=== PATIENT | male | born 1955 | race Two or more races ===

== ENCOUNTER 2017-06-29 13:31 | Emergency (ER) | payer SELFPAY ==
--- NOTE | 2017-06-29 13:40 | ED Physician Chart ---
ED Chief Complaint/HPI - Patient Information Date Seen:: 06/29/17 Time Seen:: 13:39 Chief Complaint:: DIFFICULTY BREATHING X 1 WEEK History of Present Illness:: THIS 62 YEAR OLD MALE PRESENTS WITH 1 WEEK OF DIFFICULTY BREATHING WITH MILD EXERTION. HE HAS HAD SWELLING OF THE ABDOMEN AND IN BOTH LOWER EXTREMITIES FOR THE PAST 2 MONTHS. HE HAS A COUGH WHICH IS NON-PRODUCTIVE AND HE DENIES HEMOPTYSIS. NO RECENT FEVER OR CHILLS. NO ORTHROPNEA OR PND. THE PT HAS ALSO NOTED THAT HE DEVELOPS SUBSTERNAL PRESSURE LIKE DISCOMFORT OVER THE PAST WEEK. NO DIPHORESIS. . Historian:: Patient ED Review of Systems - Review of Systems General/Constitutional: No fever, No chills, No weight loss, No weakness, No diaphoresis, Edema, No loss of appetite Skin: No skin lesions, No bruising Head: No headache, No light-headedness Eyes: No loss of vision, Diplopia, No diplopia ENT: No earache, No sore throat, No tinnitus Neck: No neck pain, No swelling, No thyromegaly, No stiffness, No mass noted Cardio Vascular: Chest pain (with exertion.), Palpitations, No PND, No orthopnea , edema Pulmonary: SOB, Cough, No sputum, No wheezing GI: No nausea, No vomiting, No diarrhea, No constipation, No hematemesis, Other (HAS HAD ABDOMINAL DISTENSION FOR THE PAST 2 MONTHS) G/U: No dysuria, No frequency, No hematuria Musculoskeletal: No bone or joint pain, No muscle pain, Other (CHRONIC LOW BACK PAINS.) Psychiatric: No prior psych history, No depression, Anxiety, No suicidal ideation Hematopoietic: No bruising, No lymphadenopathy Allergic/Immuno: No urticaria, No angioedema Neurological: No syncope, No focal symptoms, No weakness, No paresthesia, No headache, No seizure, No dizziness, No confusion, No vertigo ED Past Medical History - Past Medical History Past Medical History: HTN, Other (no diabetes) Family History: Heart disease (both the patient's father and uncle have coronary stents that started in their 50s.) Social History: Non Smoker, No Alcohol, No Drug Use Family Medical History - Family Member Mother Living Status: Hx Family Diabetes: Yes ED Physical Exam - Physical Examination General/Constitutional: Awake, Well-developed, well-nourished, Alert, No distress, Non-toxic appearing, Ambulatory Head: Atraumatic Eyes: Lids, conjuctiva normal, PERRL, EOMI Other Eyes comments:: NO arcus senilis in either eye. Skin: No rash, No ecchymosis, Well hydrated, No lymphadenopathy Other Skin comments:: Mild increased pigmentation in both lower extremities with associated edema. ENMT: External ears, nose nl, TM canals nl, Nasal exam nl, Lips, teeth, gums nl , Oropharynx nl, Tonsils nl Neck: Nontender, No nuchal rigidity, No mass, No stridor Other Neck comments:: Mild JVD and positive HJ reflux. Respiratory: Nl effort/Exclusion, Clear to Auscultation, No Wheeze/Rhonchi/Rales Other Respiratory comments:: As mentioned previously the patient seemed to have decreased breath sounds in his right lower lung zone. Other GI comments:: Patient's abdomen moderate to significant distention secondary to fluid accumulation. No tenderness to palpation or percussion. No hepatomegaly identified. No splenomegaly. No hernias present. No surgical scars. : No CVA tenderness, NL external genitalia, No discharge (no calf tenderness or tenderness to range of motion in the extremities. Patient has +2 to +3 pretibial edema in both lower extremities. Normal strength in all 4 extremities.) Neuro/Psych: Alert/oriented, Normal sensory exam, Judgement/insight normal, Mood normal, Normal gait, No focal deficits Misc: Normal back, No paraspinal tenderness ED Labs/Radiology/EKG Results - Lab Results Results: SINGLE VIEW CXR: NO Cardiomegaly. MILD VASCULAR PROMINENCE IN LOWER LUNG ZONES. NO AREAS OF PULMONARY INFILTRATE OR CONSOLIDATION. NO PLEURAL EFFUSIONS. NO PNEUMOTHORAX. IMPRESSION: NO ACUTE CARDIOPULMONARY FINDINGS. EKG INTERPRETATION: NORMAL SINUS WITH FREQUENT PVC'S INDETERMINATE AXIS. LOW VOLTAGE IN THE FRONTAL PLANE. Q-WAVE IN AVF SUGGESTIVE OLD INFERIOR [place]. IMPRESSION: ABNORMAL EKG. EKG #2 INTERPRETATION: Sinus rhythm at a rate of 70 with frequent PVCs. Normal QRS axis. Normal UT interval. Normal QRS duration. Prolonged QT interval of 544. Q-wave in lead aVF. No ST segment elevation or depression. Nonspecific flattening of the T-wave. IMPRESSION: ABNORMAL EKG Laboratory Tests 06/29/17 06/29/17 06/29/17 14:09 14:09 14:09 WBC 8.0 RBC 4.36 Hgb 15.1 Hct 43.8 MCV 100.3 H MCH 34.7 H MCHC Differential 34.6 RDW 13.0 Plt Count 188 MPV 9.3 Neutrophils % 43.0 Lymphocytes % 43.5 Monocytes % 11.2 H Eosinophils % 2.1 Basophils % 0.2 Sodium 133 L Potassium 3.4 L Chloride 99 Carbon Dioxide 29.7 Anion Gap 7.7 BUN 18 Creatinine 1.1 Est GFR ( Amer) > 60.0 Est GFR (Non-Af Amer) > 60.0 BUN/Creatinine Ratio 16.4 Glucose 113 H Calcium 8.6 Total Bilirubin 1.4 H AST 48 H ALT 20 Alkaline Phosphatase 117 H Troponin I B-Natriuretic Peptide 346.0 H Total Protein 7.1 Albumin 3.1 L Globulin 4.0 Albumin/Globulin Ratio 0.8 L 06/29/17 14:09 WBC RBC Hgb Hct MCV MCH MCHC Differential RDW Plt Count MPV Neutrophils % Lymphocytes % Monocytes % Eosinophils % Basophils % Sodium Potassium Chloride Carbon Dioxide Anion Gap BUN Creatinine Est GFR ( Amer) Est GFR (Non-Af Amer) BUN/Creatinine Ratio Glucose Calcium Total Bilirubin AST ALT Alkaline Phosphatase Troponin I 0.02 B-Natriuretic Peptide Total Protein Albumin Globulin Albumin/Globulin Ratio LAB INTERPRETATION: CBC shows no leukocytosis or anemia. Platelet count was within the normal range. Anabolic studies show a mildly lowered serum sodium of 133 and a low potassium of 3.4. Values are probably clinically insignificant. Patient's BNP is elevated in the 300 range suggesting CHF. Total bilirubin is elevated as is the AST and alkaline phosphatase. His may represent passive congestion of the liver due to congestive failure. ED Assessment - Assessment General Assessment: CASE SUMMARY: THIS 62 YEAR OLD MALE WAS BIB FAMILY FOR SHORTNESS OF BREATH AND SWELLING IN HIS ABDOMEN AND BOTH LEGS. HIS SYMPTOMS HAVE WORSENED OVER THE PAST WEEK. HE HAS SORTO (MILD) AND ASSOCIATED SUB STERNAL CHEST "PRESSURE." HIS CXR SHOWED MILD CARDIOMEGALY AND INCREASED VASCULAR CONGESTION IN THE LOWER LOBES OF BOTH LUNGS. HIS EKG WAS ABNORMAL WITH LOW QRS VOLTAGE, FREQUENT PVC'S , AND T-WAVE FLATENING. HIS BP WAS HIGH ON ADMISSION AND ADDRESSED WITH SUB- LINGUAL NTG AND IV LABETALOL AND LASIX. HIS BP CAME DOWN AND HIS SYMPTOMS RESOLVED. I ADVISED THE PT HE HAD CHF, HTN AND HIGH RISK FOR CAD. THE PT HAS NO INSURANCE AND HE DIDN'T WANT TO RUN UP A HIGH BILL THAT HE CAN'T AFFORD. HE SIGNED OUT AMA WITH THE PLAN TO RETURN IF HIS SYMPTOMS WORSENED OR WHEN HE CLEARED UP HIS INSURANCE SITUATION. FOLLOW UP PHONE CALL 06-30-17: [phone] DID NOT ANSWER. VOICE MAIL LEFT WITH REQUEST TO RETURN CALL. MDM DDX FOR SHORT OF BREATH: NOT METABOLIC ACIDOSIS BASED ON LABS. NOT PNEUMONIA BASED ON HISTORY, EXAM AND NEGATIVE CXR. NOT PNEUMOTHORAX BASED ON NEGATIVE CXR. LOW RISK FOR PE BASED ON WELL'S SCORE OF "0" CRITICAL CARE FOR TREATMENT OF POTENTIAL LIFE THREATENING HYPERTENSION WITH SUB- LINGUAL NTG, IV LASIX, and IV LABETALOL. FOR 30 MINUTES. ED Septic Shock - . Is Septic Shock (SBP<90, OR Lactate>4 mmol\\L) present?: No ED Reassessment (Disposition) - Reassessment Reassessment Condition:: Improved - Diagnosis Diagnosis:: HYPERTENSION (POOR CONTROL), CONGESTIVE HEART FAILURE, UNSTABLE ANGINA - Aftercare/Follow up Instructions Aftercare/Follow-Up Instructions:: Counseled pt regarding lab results/diagnosis & need follow up, Counseled pt & family regarding lab results/diagnosis & need follow up - Patient Disposition Discharge/Transfer:: Against Medical Advice ED Discharge Plan - Patient Disposition Admit/Discharge/Transfer: AGAINST MEDICAL ADVICE Condition at Disposition: Stable Instructions: Heart Failure, [id number], Angina Pectoris, [id number] Forms: Patient Refusal of Treatment
[2017-06-29] MEDS ORDERED: Labetalol 5 mg/mL 20 mL Vial ONE (14:18)
[2017-06-29 14:23] LABS: % BASOPHILS 0.2 % (0.0-2.0); % EOSINOPHILS 2.1 % (0.0-5.0); % LYMPHOCYTES 43.5 % (20.0-50.0); % MONOCYTES 11.2 % (2.0-10.0); HEMATOCRIT 43.8 % (41.0-60); HEMOGLOBIN 15.1 gm/dL (12-16); MEAN CELL VOLUME 100.3 fl (80-99); MEAN CORPUSCULAR HEMOGLOBIN 34.7 pg (26.0-30.0); MEAN CORPUSCULAR HGB CONC 34.6 pg (28.0-36.0); MEAN PLATELET VOLUME 9.3 fl; NEUTROPHILE ABSOLUTE 3.4 Th/cmm (1.8-8.0); PLATELET COUNT 188 Th/cmm (150-400); RED BLOOD COUNT 4.36 Mil/cmm (4.30-5.70)
[2017-06-29] MEDS: Labetalol 5 mg/mL 20 mL Vial IVP STA (14:29)
[2017-06-29 14:33] LABS: ALB/GLOB RATIO 0.8 (1.0-1.8); ALKALINE PHOSPHATASE 117 U/L (34-104); ANION GAP 7.7 (7.0-16.0); BILIRUBIN,TOTAL 1.4 mg/dL (0.3-1.0); BUN - UREA NITROGEN 18 mg/dL (7-25); BUN/CREATININE RATIO 16.4; CALCIUM SERUM 8.6 mg/dL (8.6-10.3); CARBON DIOXIDE 29.7 mEq/L (21.0-31.0); CHLORIDE 99 mEq/L (98-107); CREATININE - SERUM 1.1 mg/dL (0.7-1.3); GLUCOSE 113 mg/dL (70-105); POTASSIUM SERUM 3.4 mEq/L (3.5-5.1); SGOT 48 U/L (13-39); SGPT/ALT 20 U/L (7-52); SODIUM SERUM 133 mEq/L (136-145)
[2017-06-29] MEDS ORDERED: Aspirin 81mg Chewable Tab ONE (14:43)
[2017-06-29] MEDS: Aspirin 81mg Chewable Tab PO ONE (14:45)
--- NOTE | 2017-06-30 09:10 | Diagnostic Imaging Report ---
Portable chest x-ray History: Shortness of breath Allowing for portable technique and a poor inspiration, the heart size is normal. No focal pulmonary parenchymal processes. No hilar or mediastinal abnormalities. Impression: No acute abnormalities.
== END 2017-06-29 16:50 | disposition left against medical advice (07) ==
LOC: ER 13:31
DX: I11.0 Hypertensive heart disease with heart failure (principal); I50.9 Heart failure, unspecified
CPT/HCPCS: 36415-UA; 71010-TC; 80053-TC; 83880-TC; 84484-TC; 85025-TC; 90799; 93005; 96374; 96375; J1940; Z7502; Z7610